=== PATIENT | male | born 1990 | race Caucasian/White ===

== ENCOUNTER 2020-03-07 20:42 | Emergency (ER) | payer BC, MEDICAID ==
[~2020-03-07] VITALS: Ht 180.3 cm; Wt 65.8 kg
[2020-03-07 20:43] VITALS: BP_SYST 98
--- NOTE | 2020-03-07 20:43 | NUR ---
Patient to ER bed 05 to gown for evaluation. Side rails up.
--- NOTE | 2020-03-07 20:50 | NUR ---
Patient brought in by EMS ALS from mother's care. Mother called EMS due to patient being difficulty to arouse. Patient reports taking 1 1/2 pills of Xanax and weed but reports it was laced. Patient has history of schizophrenia. Taking abilify, gabapentin, trazadone and zoloft. Denies any pain. AAO x 4. No other complaints/injuries per patient or as noted. Will continue to monitor. Addendum: 03/07/20 at 2053 by [email or web address] Patient arrived with 18 gauge Saline Lock on left FA.
--- NOTE | 2020-03-07 20:53 | NUR ---
ER Dr. Parikh at bedside examining patient.
[2020-03-07 21:25] LABS: BASOPHILS # (AUTO) 0.1 K/uL (0.0-0.2); BASOPHILS % (AUTO) 0.5 % (0.0-2.0); EOSINOPHILS # (AUTO) 0.1 K/uL (0.0-0.4); EOSINOPHILS % (AUTO) 0.7 % (0.0-4.0); HEMATOCRIT 34.3 % (36-54); HEMOGLOBIN 11.5 g/dL (14.0-18.0); LYMPHOCYTES # (AUTO) 1.8 K/uL (1.0-5.5); LYMPHOCYTES % (AUTO) 15.1 % (20.5-51.5); MEAN CORPUSCULAR HEMOGLOBIN 32 pg (27-31); MEAN CORPUSCULAR HGB CONC 34 % (32-36); MEAN CORPUSCULAR VOLUME 96 fL (79.0-98.0); MONOCYTES # (AUTO) 0.7 K/uL (0.0-1.0); MONOCYTES % (AUTO) 5.9 % (1.7-9.3); NEUTROPHILS # (AUTO) 9.4 K/uL (1.8-7.7); NEUTROPHILS % (AUTO) 77.8 % (40.0-70.0); PLATELET COUNT (AUTO) 325 K/uL (130-430); RED BLOOD CELL COUNT(AUTO) 3.57 MIL/uL (4.2-6.2); RED CELL DISTRIBUTION WIDTH 12.7 % (9.0-15.0); WHITE BLOOD COUNT (AUTO) 12.1 K/uL (4.8-10.8)
[2020-03-07 21:42] LABS: INR 1.2 (0.80-1.20); PROTHROMBIN TIME 11.6 SECS (9.5-12.5)
[2020-03-07 22:17] LABS: ANION GAP 11 (5-15); CALCIUM 8.5 mg/dL (8.4-11.0); CHLORIDE 104 mmol/L (98-107); CREATININE 1.18 mg/dL (0.55-1.30); GLUCOSE 130 mg/dL (70-99); POTASSIUM 3.4 mmol/L (3.5-5.1); SODIUM SERUM 140 mmol/L (136-145); UREA NITROGEN, BLOOD 37 mg/dL (8-21)
[2020-03-07 22:18] LABS: GFR AFRICAN AMERICAN 95 mL/min (>90)
[2020-03-07 22:23] LABS: ALANINE AMINOTRANSFERASE 25 U/L (12-78); ASPARTATE AMINOTRANSFERASE 19 U/L (10-37); TOTAL BILIRUBIN 1.5 mg/dL (0.0-1.0)
[2020-03-07 22:24] LABS: ALCOHOL, BLOOD < 3 mg/dL (<10)
[2020-03-07] MEDS ORDERED: NACL 0.9% 1,000 ML IV ONE (22:45)
[2020-03-07 22:53] LABS: ACETAMINOPHEN < 1 ug/mL (1-30); CKMB RELATIVE INDEX 1.7 (0.0-2.9); CREATINE KINASE MB 5.9 ng/mL (0-3.6)
--- NOTE | 2020-03-07 23:53 | NUR ---
notifed patient was unable to urinate.
[2020-03-08 01:13] VITALS: BP_SYST 126
== END 2020-03-08 01:13 | disposition home or self-care (01) ==
LOC: SED 20:42
DX: T42.4X5A Adverse effect of benzodiazepines, initial encounter (principal); D72.829 Elevated white blood cell count, unspecified; D64.9 Anemia, unspecified; E87.6 Hypokalemia; R73.9 Hyperglycemia, unspecified; F19.10 Other psychoactive substance abuse, uncomplicated; Y92.89 Other specified places as the place of occurrence of the external cause
CPT/HCPCS: 36415; 80053; 82550; 82553; 84484; 85025; 85610; 85730; 93005; 99284; G0480; G0481; G0482; J7030

== ENCOUNTER 2021-03-08 18:58 | Emergency (ER) | payer MEDICAID, SELFPAY ==
[~2021-03-08] VITALS: Ht 180.3 cm; Wt 68.0 kg
[2021-03-08 19:05] VITALS: BP_SYST 125
--- NOTE | 2021-03-08 19:05 | NUR ---
PT TO BED 3 FOR EVALUATION, GOWNED, AND ATTACHED TO MONITOR.
--- NOTE | 2021-03-08 19:06 | NUR ---
DR. VIVAR TO BEDSIDE TO ASSESS.
--- NOTE | 2021-03-08 19:10 | NUR ---
PT AAO AND AMBULATORY BUT LETHARGIC. PT REPORTED THAT HE TOOK APPROXIMATELY 6-7 M30'S (FENTANYL). PT REPORTS HE TOOK THESE PILLS IN A SUICIDE ATTEMPT. PT REPORTS NAUSEA, DIZZINESS, AND HEADACHE. PT REPORTS CURRENT PAIN LEVEL 7/10 ON PAIN SCALE. PT HAS HISTORY OF PSYCH WITH MULTIPLE PSYCHIATRIC HOSPITALIZATIONS.
[2021-03-08 19:31] LABS: BASOPHILS # (AUTO) 0.1 K/uL (0.0-0.2); BASOPHILS % (AUTO) 0.8 % (0.0-2.0); EOSINOPHILS # (AUTO) 0.1 K/uL (0.0-0.4); EOSINOPHILS % (AUTO) 0.8 % (0.0-4.0); HEMATOCRIT 35.5 % (36-54); HEMOGLOBIN 12.1 g/dL (14.0-18.0); LYMPHOCYTES # (AUTO) 0.9 K/uL (1.0-5.5); LYMPHOCYTES % (AUTO) 10.4 % (20.5-51.5); MEAN CORPUSCULAR HEMOGLOBIN 33 pg (27-31); MEAN CORPUSCULAR HGB CONC 34 % (32-36); MEAN CORPUSCULAR VOLUME 98 fL (79.0-98.0); MONOCYTES # (AUTO) 0.6 K/uL (0.0-1.0); MONOCYTES % (AUTO) 6.4 % (1.7-9.3); NEUTROPHILS % (AUTO) 81.6 % (40.0-70.0); PLATELET COUNT (AUTO) 317 K/uL (130-430); RED BLOOD CELL COUNT(AUTO) 3.64 MIL/uL (4.2-6.2); RED CELL DISTRIBUTION WIDTH 12.5 % (9.0-15.0); WHITE BLOOD COUNT (AUTO) 8.6 K/uL (4.8-10.8)
[2021-03-08 19:43] LABS: ANION GAP 8 (5-15); CHLORIDE 100 mmol/L (98-107); CREATININE 0.91 mg/dL (0.55-1.30); GLUCOSE 95 mg/dL (70-99); POTASSIUM 3.7 mmol/L (3.5-5.1); SODIUM SERUM 138 mmol/L (136-145); UREA NITROGEN, BLOOD 14 mg/dL (8-21)
[2021-03-08 19:45] LABS: GFR AFRICAN AMERICAN 128 mL/min (>90); PROTHROMBIN TIME 10.2 SECS (9.5-12.5)
[2021-03-08 19:49] LABS: ALANINE AMINOTRANSFERASE 287 U/L (12-78); ALBUMIN 3.6 g/dL (3.4-4.8); ASPARTATE AMINOTRANSFERASE 68 U/L (10-37); TOTAL BILIRUBIN 0.9 mg/dL (0.0-1.0)
[2021-03-08 19:50] LABS: ACETAMINOPHEN < 1 ug/mL (1-30); ALCOHOL, BLOOD < 3 mg/dL (<10)
--- NOTE | 2021-03-08 20:17 | NUR ---
VSS no s/s of acute distress Resting on gurney rails up
[2021-03-08 20:18] LABS: CKMB RELATIVE INDEX 0.6 (0.0-2.9); CREATINE KINASE MB 6.2 ng/mL (0-3.6)
[2021-03-08] MEDS ORDERED: NACL 0.9% 1,000 ML IV ONE (21:00)
--- NOTE | 2021-03-08 21:22 | NUR ---
Pt claiming now he wants to " hurt himself "
--- NOTE | 2021-03-08 22:25 | NUR ---
Pt states feeling a little bit better, VSS no s/s of acute distress Resting on gurney rails up
[2021-03-08 23:39] LABS: BILIRUBIN,URINE 1+ (NEGATIVE); BLOOD, URINE NEGATIVE (NEGATIVE); CLARITY/URINE SL CLOUDY (CLEAR); COLOR,URINE ORANGE (YELLOW); GLUCOSE,URINE NEGATIVE (NEGATIVE); KETONES,URINE TRACE (NEGATIVE); LEUKOCYTE ESTERASE ,URINE NEGATIVE (NEGATIVE); NITRITE, URINE NEGATIVE (NEGATIVE); PROTEIN URINE 1+ (NEGATIVE)
--- NOTE | 2021-03-08 23:45 | NUR ---
Dr. Peña bedside for update
[2021-03-09 00:06] LABS: BARBITURATE, URINE NEGATIVE (NEG <=200); COCAINE, URINE NEGATIVE (NEG <=150); PHENCYCLIDINE SCREEN,URINE NEGATIVE (NEG <=25); UR TRICYCLIC ANTIDEPRESSANTS NEGATIVE (NEG <=300); URINE METHADONE NEGATIVE (NEG <=200); URINE OXYCODONE SCREEN NEGATIVE (NEG <=100); URINE PROPOXYPHENE SCREEN NEGATIVE (NEG <=300)
[2021-03-09 00:07] LABS: CANNABINOID, URINE POSITIVE (NEG <=50); METHAMPHETAMINES SCREEN,URINE POSITIVE (NEG <=500); OPIATE, URINE POSITIVE (NEG <=100)
[2021-03-09 00:08] LABS: BENZODIAZEPINE, URINE POSITIVE (NEG <=150); URINE AMPHETAMINE POSITIVE (NEG <=500)
[2021-03-09 00:09] LABS: RBC,URINE 0-3 /HPF (0-3)
[2021-03-09 00:10] LABS: BACTERIA,URINE None Seen /HPF (None Seen)
[2021-03-09 00:11] LABS: HYALINE CASTS, URINE 0-10 /LPF (None Seen)
[2021-03-09 00:12] LABS: FINE GRANULAR CASTS,URINE 0-10 /LPF (None Seen); MUCUS,URINE 3+ /LPF (None Seen)
[2021-03-09] MEDS ORDERED: NACL 0.9% 1,000 ML IV ONE (00:15)
--- NOTE | 2021-03-09 01:15 | NUR ---
VSS no s/s of acute distress Resting on gurney rails up
[2021-03-09 01:34] LABS: CKMB RELATIVE INDEX 0.6 (0.0-2.9)
--- NOTE | 2021-03-09 02:22 | NUR ---
VSS no s/s of acute distress, Pt asleep
--- NOTE | 2021-03-09 03:30 | NUR ---
Pt states I'm feeling ok, Pt went to and from the restroom
--- NOTE | 2021-03-09 04:44 | NUR ---
VSS no s/s of acute distress Resting on gurney rails up
--- NOTE | 2021-03-09 05:38 | NUR ---
Dr. Peña bedside to update pt
[2021-03-09] MEDS ORDERED: ONDANSETRON HCL 4 MG/2 ML VIAL ONE (06:04)
[2021-03-09] MEDS ORDERED: ONDANSETRON HCL 4 MG/2 ML VIAL IVP ONE (06:15)
--- NOTE | 2021-03-09 06:28 | NUR ---
Pt switched to ED Bed 5, with better view and accessibility from Station
--- NOTE | 2021-03-09 06:35 | NUR ---
Dr. Neal paged by ED / Dr. Peña
--- NOTE | 2021-03-09 07:00 | NUR ---
ASSUMED CARE OF PT. SLEEPING, DOOR REMAINS OPEN TO KEEP PT. IN VIEW
--- NOTE | 2021-03-09 07:48 | NUR ---
PT. AWAKE, REQUESTING SOMETHING TO EAT, CALM AND COOPERATIVE, WHEN ASKED STATES STILL ENDORSING SI
[2021-03-09] MEDS ORDERED: LORazepam 1 MG TABLET PO ONE ×2 (09:00→23:45)
--- NOTE | 2021-03-09 09:11 | NUR ---
PT. AWAKE REQUESTED SOMETHING FOR ANXIETY, MEDICATED, LIGHTS OFF SO PT MAY GFO BACK TO SLEEP
--- NOTE | 2021-03-09 09:57 | NUR ---
ER at bedside examining patient.
--- NOTE | 2021-03-09 12:50 | NUR ---
lunch tray delivered
--- NOTE | 2021-03-09 12:58 | NUR ---
PT PROVIDED WITH LUNCH TRAY, EATING IN BED
--- NOTE | 2021-03-09 13:20 | NUR ---
pt ate 100% of lunch, calm and cooperative
--- NOTE | 2021-03-09 19:14 | NUR ---
care endorsed to Jennifer NEUMANN
--- NOTE | 2021-03-09 19:15 | NUR ---
RECEIVED REPORT FROM THIEN CRAIG. Patient resting comfortbaly in bed. Denies any pain at this time.
--- NOTE | 2021-03-09 20:19 | NUR ---
Spoke to Verena at [facility] regarding accepting patient for suicidal ideation. MRSA order in place. Patient will be admitted under MD Jacobsen. Number to give report is [phone].
--- NOTE | 2021-03-09 21:00 | NUR ---
spoke to Lluvia NEUMANN from [facility]. Bed given 108B. Report given. Transportation Arranged. [facility] to [facility] patient. ETA of [id number]
[2021-03-09] MEDS ORDERED: LORazepam 1 MG TABLET ONE (23:45)
[2021-03-09 23:52] VITALS: BP_SYST 110
--- NOTE | 2021-03-09 23:53 | NUR ---
Patient to be transferred to [facility] . Is being transferred due to higher level of care. Receiving facility has accepting physician and available space. ER physician has signed transfer form. Patient or responsible constitution party has agreed to transfer and signed form. Patient belongings inventoried and will be sent with patient. Copy of nursing notes, lab reports, EKG, Physicians Orders and X-rays to be sent with patient. Report called to THIEN Teixeira at receiving facility. Receiving physician is [place]. [facility] ambulance service has been called for transfer. ETA is [id number].
== END 2021-03-09 23:52 ==
LOC: SED 18:58
DX: T40.601A Poisoning by unspecified narcotics, accidental (unintentional), initial encounter (principal); R45.851 Suicidal ideations; M62.82 Rhabdomyolysis; Z20.822 Contact with and (suspected) exposure to COVID-19; Y92.89 Other specified places as the place of occurrence of the external cause
CPT/HCPCS: 36415; 71045; 80053; 80307; 81000; 82550; 82553; 84484; 85025; 85610; 87081; 87426; 93005; 96361 ×2; 96374; 99291; G0480; G0481; G0482; J2405; J7030 ×2